=== PATIENT | female | born 1945 | race Caucasian/White ===

== ENCOUNTER 2017-08-26 12:09 | Emergency (ER) | payer OTHER, MEDICARE ==
[~2017-08-26] VITALS: Ht 154.9 cm; Wt 66.6 kg
[2017-08-26 12:26] VITALS: Ht 154.9 cm; Wt 66.6 kg
--- NOTE | 2017-08-26 13:42 | DIAGNOSTIC IMAGING REPORT ---
LEFT ANKLE 3 VIEWS CLINICAL HISTORY: Left ankle pain. FINDINGS: 3 views of the left ankle are obtained. No prior studies are available for comparison at the time of dictation. The skeletal structures are osteopenic. No fracture is seen. The ankle mortise is intact. A joint effusion is identified. Mild soft tissue swelling is present around the ankle. IMPRESSION: Mild soft tissue swelling and joint effusion. No left ankle fracture is seen. Electronically signed by: Jer Martinez M.D. 08/26/2017 1:41 PM Dictated Date/Time: 08/26/2017 1:40 PM
[2017-08-26 15:25] VITALS: BP 129/79; PULSE 77; TEMP 36.9; O2SAT 98
--- NOTE | 2017-08-28 11:48 | EMERGENCY ROOM VISIT NOTE ---
ED Visit Note First contact with patient: 12:35 Chief Complaint: Left ankle pain. History of Present Illness: Ms. Jennings is a 72-year-old white female who ambulates into the ED with a limp complaining of left ankle pain. Patient reports approximately 2-3 hours ago she was putting on a pair of socks. She had her left ankle plantarflexed and reports she had an acute onset of severe ankle and foot pain. She reports since that time her pain has been constant. Currently she describes the pain as a sharp sensation circumferentially around the ankle and involving the calcaneus. She rates her discomfort 7/10. The pain is nonradiating. Pain worsens with all attempts to plantar flex or dorsiflex the ankle, palpation, weightbearing and ambulation. She has not identified any alleviating factors related to the pain. She has not taken any medication for pain prior to arrival at the hospital. She denies any recent trauma, previous significant injuries or surgeries, leg/ foot weakness/numbness/tingling. Review of Systems: As noted above in history of present illness. Past Medical History: Asthma, esophageal spasms, status post bilateral knee arthroplasties, cholecystectomy. Current Medications: Patient denies. Allergies to Medications: Patient denies. Social History: Patient is currently employed part-time; she feels safe in her home environment; she denies tobacco use and admits to social alcohol use. Physical Examination: Vital Signs: Date Time Temp Pulse Resp B/P (MAP) Pulse Ox O2 Delivery O2 Flow Rate FiO2 08/26/17 15:25 36.9 77 18 129/79 98 08/26/17 12:26 36.9 77 18 129/79 98 Room Air GENERAL: 72-year-old female in mild to moderate distress due to pain, nontoxic- appearing, afebrile and hemodynamically stable. NEUROLOGICAL: Awake, alert and oriented to person, place and time. Answering questions appropriately and following commands. Good hand eye coordination. No focal motor sensory deficits. SKIN: Warm, dry and pink. No soft tissue eruptions or trauma noted. LEFT LOWER LEG: No gross bony deformity. No tenderness throughout the knee, lower leg. Moderate tenderness in the area surrounding the lateral and medial malleoli without bony deformity or crepitus. There is also mild tenderness over the pelvis. No tenderness over the Achilles tendon. Initially patient had difficulty to relax due to pain but afterwards when I was able to stress her ligamentous structures I did not feel any laxity. Distal pulses were intact. Capillary refill is intact. She was able to flex and extend all the joints of the toes. Her capillary refill is brisk and she had intact sensation to light touch. ED Course: Patient is assessed as noted above. Patient's medication list was reviewed. Patient was offered pain medication and refused. Left Ankle X-Rays: Were read by myself and the radiologist showing no acute fractures or dislocations. Mild soft tissue swelling and a mild joint effusion was noted. Patient was placed in a gel splint and initially she refused crutches and walkers but did accept the cane for stability. Patient was educated about today's findings and instructed on her treatment plan ; she verbalized understanding and agreement with this plan. Clinical Impression: Left ankle pain. Decision-Making: Initially my differential diagnosis I considered ligamentous sprain, Achilles tendon rupture, ankle dislocation, ankle fracture and other causes. Disposition: Patient discharged home in stable condition; prior to departure she was reassessed and subjectively reported she was feeling much better and rated her discomfort 3/10. Plan: Comfort measures were discussed with the patient including rest, ice, elevation , cane and splint use and alternating ibuprofen and acetaminophen every 3 hours for pain. Patient was encouraged to follow-up with her PCP if no better in 6-7 days. Patient was encouraged return the ED for worsening/uncontrolled pain, worsening foot swelling, foot weakness/numbness/tingling or any new/concerning symptoms.
== END 2017-08-26 15:25 | disposition home or self-care (01) ==
LOC: C.EDB 12:10 → C.EDD 15:25
DX: M25.572 Pain in left ankle and joints of left foot (principal); J45.909 Unspecified asthma, uncomplicated